=== PATIENT | female | born 1980 | race Caucasian/White ===

== ENCOUNTER 2017-12-02 05:56 | Inpatient (IN) | payer OTHER ==
[2017-12-02 08:00] LABS: Hematocrit 35 % (35-47); Hemoglobin 11.8 g/dl (12.0-16.0); Mean Corpuscular HGB Conc 34 g/dl (31-36); Mean Corpuscular Hemoglobin 30 pg (27-31); Mean Corpuscular Volume 90 fL (80-97); Mean Platelet Volume 8 um3 (7.4-10.4); Platelet Count 315 10^3/ul (150-450); Red Cell Distribution Width 15 % (10.5-15); White Blood Count 12.1 10^3/ul (3.5-10.8)
[2017-12-02] MEDS ORDERED: Sodium Citrate/Citric Acid* 15 ML UDC ONE (08:44)
[2017-12-02] MEDS ORDERED: ceFOXitin 2 GM IVPREMIX* 2 GM/50 ML BAG ONE (08:44)
[2017-12-02] MEDS ORDERED: ceFOXitin 2 GM IVPREMIX* 2 GM/50 ML BAG IVPB ONE (08:55)
[2017-12-02] MEDS ORDERED: Famotidine IV* 10 MG/ML 2 ML (20 mg) ONE (09:19)
[2017-12-02] MEDS ORDERED: Metoclopramide IV* 5 MG/ML 2 ML VIAL ONE (09:19)
[2017-12-02] MEDS ORDERED: Morphine PF AMP (0.5MG/ML)* 5 MG/10 ML AMP ONE (09:23)
[2017-12-02] MEDS ORDERED: Famotidine IV* 10 MG/ML 2 ML (20 mg) IV ONE (09:27)
[2017-12-02] MEDS ORDERED: Buffered Lidocaine 0.9% SYRIN* 5 ML/SYR SYRINGE INTRADERM ONE (09:27)
[2017-12-02] MEDS ORDERED: Metoclopramide IV* 5 MG/ML 2 ML VIAL IV SLOW PU ONE (09:27)
[2017-12-02] MEDS ORDERED: Sodium Citrate/Citric Acid* 15 ML UDC PO ONE (09:27)
[2017-12-02] MEDS ORDERED: oxyCODONE/Acetamin 5/325 MG* TAB PO PRN ×2 (10:18)
[2017-12-02] MEDS ORDERED: Naloxone* 0.4 MG/ML 1 ML VIAL IV PRN ×2 (10:18)
[2017-12-02] MEDS ORDERED: DiMENhydriNATE IV* 50 MG/ML VIAL IV PUSH PRN (10:18)
[2017-12-02] MEDS ORDERED: Nalbuphine* 20 MG/ML 1 ML VIAL IV PRN (10:18)
[2017-12-02] MEDS ORDERED: Ondansetron INJ* 2 MG/ML VIAL IV PRN (10:18)
[2017-12-02] MEDS ORDERED: Ketorolac INJ* 30 MG/ML 1 ML VIAL IV PRN (10:18)
[2017-12-02] MEDS ORDERED: fentaNYL* 50 MCG/ML 2 ML VIAL (100 MCG VIAL) IV PRN (10:18)
[2017-12-02] MEDS ORDERED: Phenylephrine INJ* 10 MG/ML 1 ML VIAL (10 MG) ONE (10:42)
[2017-12-02] MEDS ORDERED: Dexamethasone IV* 4 MG/ML 1 ML (4 MG) ONE (10:42)
[2017-12-02] MEDS ORDERED: Ondansetron INJ* 2 MG/ML VIAL ONE (10:42)
[2017-12-02] MEDS ORDERED: OXYTOCIN* 10 UNITS/ML 1 ML VIAL ONE (10:42)
[2017-12-02] MEDS ORDERED: Ibuprofen TAB* 600 MG PO SCH (11:00)
[2017-12-02] MEDS ORDERED: Witch Hazel PAD* JAR TOPICAL PRN (11:05)
[2017-12-02] MEDS ORDERED: Tetan/Diph/Pertus SYR(Tdap)* 0.5 ML SYR(BOOSTRIX) use SYR IM ONE (11:05)
[2017-12-02] MEDS: Docusate CAP* 100 MG PO SCH ×2 (13:24→21:01)
[2017-12-02] MEDS: Ibuprofen TAB* 600 MG PO SCH ×2 (13:24→19:35)
[2017-12-02] MEDS: Simethicone TAB* 80 MG TAB.CHEW PO SCH ×3 (13:25→22:15)
--- NOTE | 2017-12-02 14:52 | PTEDU ---
Patient Name: AKSHAT TAYLOR AKSHAT TAYLOR selected video: Follow Me Mum: [facility] to view on 8 at 2:50:56 PM from [facility] [id number]
[2017-12-03] MEDS ORDERED: oxyCODONE/Acetamin 5/325 MG* TAB PO PRN (01:00)
[2017-12-03] MEDS: Ibuprofen TAB* 600 MG PO SCH ×4 (01:24→21:17)
--- NOTE | 2017-12-03 01:43 | OP ---
DATE OF OPERATION: 12/02/17 - ROOM #[id number]-102 DATE OF : 78 SURGEON: Liberty Null MD CONFIGURATION DEVELOPER: Hussain Rock CNM. ANESTHESIOLOGIST: Dr. Haji. ANESTHESIA: Spinal. PRE-OP DIAGNOSES: 37 plus 1 week gestation, with spontaneous rupture of membranes, history of previous section and satisfied parity. POST-OP DIAGNOSES: 37 plus 1 week gestation, with spontaneous rupture of membranes, history of previous section and satisfied parity. OPERATIVE PROCEDURE: Repeat low transverse section and bilateral tubal ligation. ESTIMATED BLOOD LOSS: 600 cc. URINE OUTPUT: 50 cc. IV FLUIDS: 1800 cc lactated Ringer's. MATERIALS TO LAB: Cord blood. INDICATIONS: This patient was a 37-year-old 2 para 1 who presented this morning at 37 plus 1 weeks gestation with spontaneous rupture of membranes. The patient had been thoroughly counseled during her and she desired to proceed with a repeat section. The patient had also been extensively counseled regarding a sterilization procedure and she had signed consent over a month ago. This was discussed again this morning and she still desired to proceed with the permanent sterilization. She was extensively counseled and consent was signed. FINDINGS: Normal-appearing uterus, fallopian tubes, and ovaries. Delivery is productive of a 6 pounds 6 ounces male with Apgars of 9 and 9. Time of delivery was 10:05. COMPLICATIONS: None. DESCRIPTION OF PROCEDURE: The risks, benefits, and alternatives were described to the patient, and informed consent was obtained. The patient was taken to the operating room with IV running, where spinal anesthesia was induced and found to be adequate. The patient was prepped and draped in normal sterile fashion in the dorsal supine position with a leftward tilt. A Pfannenstiel skin incision was made with a scalpel through the patient's previous incision. This was carried down to the underlying fascia using the scalpel. The fascia was scored in the midline, and the incision was extended using Najera scissors. The fascia was dissected off the underlying rectus muscles using blunt and sharp dissection. The rectus muscles were in the midline using dissection with a Chichi clamp. The peritoneum was then entered bluntly. A bladder blade was placed. A bladder flap was created sharply using Metzenbaum scissors. A low transverse uterine incision was then made with the scalpel. This was carried down to the amniotic membranes. The membranes were then ruptured, productive of clear fluid. The uterine incision was extended using blunt traction. The head was elevated to the level of the incision, and, with fundal pressure, the head delivered without difficulty. The shoulders then were also both delivered and the body followed. The had excellent tone and cried immediately on delivery. The cord was doubly clamped and cut. The infant was then handed to the awaiting manager zone. Cord blood was collected. The placenta was delivered with manual extraction. The uterus was then exteriorized and cleared of all clots and debris. The uterine incision was then reapproximated using 0 Polysorb in a running-locked fashion. A second layer of imbricating 0 Polysorb sutures was then also placed for good hemostasis. The posterior cul-de-sac was irrigated with saline. The right fallopian tube was then grasped with a long Chichi clamp including the mid- tube to the fimbriated end. A 2-0 Vicryl tie was placed and then a 2-0 Vicryl stitch was then placed above that. The distal tube was then excised with Metzenbaum scissors, and there was good hemostasis. The same was performed on the left tube, again with good hemostasis. The uterus was then returned to the abdomen. The incision and tubal sites were reinspected and still noted to be hemostatic. The peritoneum was closed with 3-0 Polysorb in a running fashion. The fascia was closed with 0 Polysorb in a running fashion. The subcutaneous tissues were copiously irrigated and made hemostatic using the Bovie. The subcutaneous tissues were then reapproximated using 3-0 Polysorb in interrupted sutures. The skin was then closed with 4-0 Monocryl in a subcuticular stitch. A sterile bandage was then placed over the incision. The patient tolerated the procedure well. Sponge, lap, and needle counts were correct x2. [id number]/[facility] #: [id number] [facility]
[2017-12-03 06:59] LABS: Hematocrit 32 % (35-47); Hemoglobin 10.7 g/dl (12.0-16.0); Mean Corpuscular HGB Conc 33 g/dl (31-36); Mean Corpuscular Hemoglobin 30 pg (27-31); Mean Corpuscular Volume 90 fL (80-97); Mean Platelet Volume 8 um3 (7.4-10.4); Platelet Count 274 10^3/ul (150-450); Red Blood Count 3.56 10^6/ul (4.0-5.4); Red Cell Distribution Width 14 % (10.5-15); White Blood Count 17.2 10^3/ul (3.5-10.8)
[2017-12-03 07:09] LABS: ABS Basophils 0.1 10^3/ul (0-0.2); ABS Eosinophils 0.1 10^3/ul (0-0.6); ABS Lymphocytes 3.2 10^3/ul (1.0-4.8); ABS Monocytes 1.7 10^3/ul (0-0.8); ABS Nucleated RBC 0 10^3/ul; Eosinophil % 0.7 % (0-6); Lymphocyte % 18.8 % (25-47); Nucleated Red Blood Cells % 0.1
[2017-12-03] MEDS: Docusate CAP* 100 MG PO SCH ×3 (09:07→21:18)
[2017-12-03] MEDS: Simethicone TAB* 80 MG TAB.CHEW PO SCH ×4 (09:07→21:17)
[2017-12-03] MEDS: oxyCODONE/Acetamin 5/325 MG* TAB PO PRN (12:14)
[2017-12-03] MEDS: Ferrous Gluconate TAB* 324 MG TAB PO SCH (15:55)
[2017-12-03] MEDS ORDERED: Famotidine TAB* 20 MG PO ONE (21:12)
[2017-12-03] MEDS ORDERED: Famotidine TAB* 20 MG ONE (21:15)
[2017-12-04] MEDS: Ferrous Gluconate TAB* 324 MG TAB PO SCH (07:30)
[2017-12-04] MEDS: Ibuprofen TAB* 600 MG PO SCH ×4 (07:31→21:13)
[2017-12-04] MEDS: Docusate CAP* 100 MG PO SCH ×3 (08:49→21:12)
[2017-12-04] MEDS: Simethicone TAB* 80 MG TAB.CHEW PO SCH ×4 (08:49→21:12)
[2017-12-04] MEDS: oxyCODONE/Acetamin 5/325 MG* TAB PO PRN ×2 (10:47→18:03)
[2017-12-04 21:40] VITALS: BP 139/79
[2017-12-05] MEDS: oxyCODONE/Acetamin 5/325 MG* TAB PO PRN (04:57)
[2017-12-05] MEDS: Ibuprofen TAB* 600 MG PO SCH (04:57)
[2017-12-05] MEDS: Docusate CAP* 100 MG PO SCH (08:49)
[2017-12-05] MEDS: Simethicone TAB* 80 MG TAB.CHEW PO SCH (08:49)
== END 2017-12-05 10:38 | disposition home or self-care (01) | DRG 766 ==
LOC: MCHOBOUT 05:56 → MCHOB 07:10
PROVIDERS: ADMIT Obstetrics & Gynecology; ATTEND Obstetrics & Gynecology
PROC: 0UB70ZZ Excision of Bilateral Fallopian Tubes, Open Approach (ICD-10-PCS; 2017-12-02)
PROC: 10D00Z1 Extraction of Products of Conception, Low, Open Approach (ICD-10-PCS; principal; 2017-12-02 09:34)
DX: O34.211 Maternal care for low transverse scar from previous cesarean delivery (principal); F17.210 Nicotine dependence, cigarettes, uncomplicated; O99.334 Smoking (tobacco) complicating childbirth; O42.02 Full-term premature rupture of membranes, onset of labor within 24 hours of rupture; Z3A.37 37 weeks gestation of pregnancy; Z37.0 Single live birth
CPT/HCPCS: 36415; 84112; 85025; 85027; 86850; 86900; 86901; 88302; A9270-GY; J0694; J1100; J2405; J2590; J2765